=== PATIENT | male | born 1960 | race Caucasian/White ===

== ENCOUNTER 2021-06-12 21:26 | Inpatient (IN) | payer BC ==
[2021-06-12] MEDS ORDERED: Zithromax 500 MG/ 250 ML NaCl Premix 500 MG/250 ML IVPB IV STA (21:58)
[2021-06-12] MEDS ORDERED: solu-MEDROL 125 MG, Sterile H2O 10 ml 2 ML IV ONE ×2 (21:58)
[2021-06-12] MEDS ORDERED: DUONEB 0.5-3 MG/3 ml Neb IH ONE ×2 (21:58)
[2021-06-12] MEDS ORDERED: ROCEPHIN 2 Gm-D5w 50ML BAG** 2 G/50 ML IVPB IV STA (21:59)
[2021-06-12] MEDS ORDERED: Sterile H2O 10 ml IJ ONE (22:00)
[2021-06-12] MEDS ORDERED: solu-MEDROL ONE (22:00)
--- NOTE | 2021-06-12 22:03 | ERPHSYRPT ---
- History of Present Illness Time Seen by Provider: 06/12/21 21:30 Source: patient Exam Limitations: no limitations Patient Subjective Stated Complaint: "I can't breath." Triage Nursing Assessment: 60 y/o white male with significant PMH of COPD rep orted worsening dyspnea with orthopnea over the past week. he reported being seen at [facility] in [place] on April 2021 and received a Z-pack and medrol dose pack. He was seen again at [facility] in the beginning of May 2021 and received a z-pack at that time. He reported only having roughly 1 week of "normal" breathing per himself. He denied headache, dizziness, visual disturbances, chest pain, N/V/D, or swelling in the extremities. Pupils 4mm bilateral. Neck supple without JVD. Symmetrical chest expansion. Heart tones S1/S2 regular rhythm tachycardic without extra beats. Patient presented with 2 - 3 word dyspnea and tripod position. Lungs with expiratory wheezes throghout all lobes with slightly diminished sounds in the posterior bases. Abdomen non- distended, non-surgical, and without peritoneal signs or pulsatile masses. Peripheral pulses +3 bilateral. Room air saturation was 88%. The patient does not have supplemental oxygen at home. He was placed on 3 L/min via NC with p ositive response SpO2 - 97% Timing/Duration: week(s) (1 week) Activities at Onset: none Severity of Dyspnea-Max: moderate Severity of Dyspnea-Current: mild Possible Cause: unknown cause (Cold weather) Modifying Factors: Improves With: albuterol inhaler Associated Symptoms: cough, wheezing, No fever, No ankle swelling, No leg swelling Allergies/Adverse Reactions: aspirin Allergy (Verified 06/12/21 21:27) Home Medications: Albuterol 8 gm Mdi Hfa [Ventolin Hfa MDI] 2 puff IH DAILY PRN 06/12/21 [History] Hx Tetanus, Diphtheria Vaccination/Date Given: No Hx Influenza Vaccination/Date Given: No Travel Risk - International Travel Have you traveled outside of the country in past 3 weeks: No - Coronavirus Screening Are you exhibiting any of the following symptoms?: Yes Symptoms: Shortness of Breath Close contact with a COVID-19 positive Pt in past 14-21 Days: No - Vaccine Status Have you recieved a Covid-19 vaccination: No - Review of Systems Constitutional: No Symptoms, No Fever, No Chills Eyes: No Symptoms Ears, Nose, & Throat: No Symptoms Respiratory: No Symptoms, No Cough, No Dyspnea Cardiac: No Symptoms, No Chest Pain, No Edema, No Syncope Abdominal/Gastrointestinal: No Symptoms, No Abdominal Pain, No Nausea, No Vomiting, No Diarrhea Genitourinary Symptoms: No Symptoms, No Dysuria Musculoskeletal: No Symptoms, No Back Pain, No Neck Pain Skin: No Symptoms, No Rash Neurological: No Symptoms, No Dizziness, No Focal Weakness, No Sensory Changes Psychological: No Symptoms Endocrine: No Symptoms Hematologic/Lymphatic: No Symptoms Immunological/Allergic: No Symptoms All Other Systems: Reviewed and Negative - Past Medical History Pertinent Past Medical History: Yes Respiratory History: COPD - Past Surgical History Past Surgical History: No - Social History Smoking Status: Never smoker Exposure to second hand smoke: No Drug Use: none Patient Lives Alone: No - Nursing Vital Signs Nursing Vital Signs: Initial Vital Signs Temperature 98.2 F 06/12/21 21:26 Pulse Rate 110 H 06/12/21 21:26 Respiratory Rate 24 06/12/21 21:26 Blood Pressure 131/106 06/12/21 21:26 O2 Sat by Pulse Oximetry 88 L 06/12/21 21:26 Pain Scale Pain Intensity 0 - Physical Exam General Appearance: no apparent distress, alert Eye Exam: PERRL/EOMI Ears, Nose, Throat Exam: hearing grossly normal, normal ENT inspection, normal pharynx Neck Exam: normal inspection, supple, full range of motion, No non-tender Respiratory Exam: respiratory distress, accessory muscle use, rhonchi, wheezing, No stridor Cardiovascular/Chest Exam: normal heart sounds, regular rate/rhythm Abdominal/Gastrointestinal Exam: soft, No tenderness, No distention, No mass Extremity Exam: non-tender, normal range of motion, normal inspection, no calf tenderness, no pedal edema Peripheral Pulses Exam: dorsalis-pedis (R): 2+, dorsalis-pedis (L): 2+ Neurologic Exam: alert, oriented x 3, cooperative, systems lead II-XII nml as tested, nml cerebellar function, nml station & gait, sensation nml, No motor deficits Skin Exam: normal color, warm, No dry Lymphatic Exam: No adenopathy SpO2 Interpretation: normal SpO2: 88 - Course Nursing assessment & vital signs reviewed: Yes EKG Interpreted by Me: RATE (106), Sinus Tach, NORMAL AXIS, NORMAL INTERVALS - Radiology Exams Chest X-ray Interpretation: Interpreted by me (Hyperinflated lungs, Otherwise clear. Normal cardiac silhouette. Intact bony thorax.) Ordered Tests: Active Orders 24 hr Category Date Time Status Livestock Sales Representative STAT Care 06/12/21 21:54 Active EKG-ER Only STAT Care 06/12/21 21:53 Active IV Insertion STAT Care 06/12/21 21:53 Active Pulse Oximetry (ED) STAT Care 06/12/21 21:53 Active CHEST 1 VIEW (PORTABLE) Stat Exams 06/12/21 21:54 Taken BLOOD CULTURE Stat Lab 06/12/21 22:24 Received CBC W DIFF Stat Lab 06/12/21 22:22 Completed CMP Stat Lab 06/12/21 22:22 Completed NT PRO BNP Stat Lab 06/12/21 22:22 Completed TROPONIN Q3H Lab 06/12/21 22:22 Completed TROPONIN Q3H Lab 06/13/21 01:00 Ordered TROPONIN Q3H Lab 06/13/21 04:00 Ordered TROPONIN Q3H Lab 06/13/21 07:00 Ordered TROPONIN Q3H Lab 06/13/21 10:00 Ordered Respiratory Therapy Assessment DAILY RT 06/12/21 22:23 Active Transfer Order Routine Transfer 06/12/21 Ordered Medication Summary Discontinued Medications Generic Name Dose Route Start Last Admin Trade Name Freq PRN Reason Stop Dose Admin Albuterol/Ipratropium 3 ml 06/12/21 21:58 06/12/21 22:05 Ipratropium/Albuterol Sulfate 3 Ml Ampul.Neb IH 06/12/21 21:59 3 ml STAT ONE Administration Albuterol/Ipratropium Confirm 06/12/21 21:58 Ipratropium/Albuterol Sulfate 3 Ml Ampul.Neb Administered 06/12/21 21:59 Dose 3 ml IH .STK-MED ONE Methylprednisolone Sodium 0 mg 06/12/21 21:58 06/12/21 22:02 Succinate 125 mg/ Sterile IV 06/12/21 21:59 125 mg Water 2 ml STAT ONE Administration Azithromycin 500 mg in 250 mls @ 250 mls/hr 06/12/21 21:58 06/12/21 23:28 Zithromax 500 Mg/ 250 Ml Nacl Premix IV 06/12/21 22:57 Infused STAT STA Infusion Ceftriaxone Sodium/Dextrose 2 g in 50 mls @ 100 mls/hr 06/12/21 21:59 06/12/21 22:39 Rocephin 2 Gm-D5w 50ml Bag IV 06/12/21 22:28 Infused STAT STA Infusion Ceftriaxone Sodium/Dextrose Confirm 06/12/21 22:07 Rocephin 2 Gm-D5w 50ml Bag Administered 06/12/21 22:08 Dose 2 g in 50 mls @ ud IV .STK-MED ONE Azithromycin Confirm 06/12/21 22:17 Zithromax 500 Mg/ 250 Ml Nacl Premix Administered 06/12/21 22:18 Dose 500 mg in 250 mls @ ud IV .STK-MED ONE Methylprednisolone Sodium Succinate Confirm 06/12/21 22:00 Methylprednis Sod Succ 125 Mg/2 Ml Vial Administered 06/12/21 22:01 Dose 125 mg .ROUTE .STK-MED ONE Sterile Water Confirm 06/12/21 22:00 Water For Injection,Sterile 10 Ml Vial Administered 06/12/21 22:01 Dose 10 ml IJ .STK-MED ONE Lab/Rad Data: Laboratory Result Diagrams 06/12/21 22:22 06/12/21 22:22 Laboratory Results 06/12/21 06/12/21 06/12/21 Range/Units 22:25 22:22 22:22 WBC (4.0-10.5) K/mm3 RBC (4.1-5.6) M/mm3 Hgb (12.5-18.0) gm/dl Hct (42-50) % MCV (78-100) fl MCH (26-32) pg MCHC (32-36) g/dl RDW (11.5-14.0) % Plt Count (150-450) K/mm3 MPV (7.5-11.0) fl Gran % (36.0-66.0) % Eos # (Auto) (0-0.5) Absolute Lymphs (auto) (1.0-4.6) Absolute Monos (auto) (0.0-1.3) Lymphocytes % (24.0-44.0) % Monocytes % (0.0-12.0) % Eosinophils % (0.00-5.0) % Basophils % (0.0-0.4) % Absolute Granulocytes (1.4-6.9) Basophils # (0-0.4) Sodium 140 (137-145) mmol/L Potassium 4.3 (3.5-5.1) mmol/L Chloride 101 (98-107) mmol/L Carbon Dioxide 29 (22-30) mmol/L Anion Gap 14.9 (5-15) MEQ/L BUN 8 L (9-20) mg/dL Creatinine 0.77 (0.66-1.25) mg/dL Estimated GFR > 60.0 ML/MIN Glucose 106 (74-106) mg/dL Calcium 9.8 (8.4-10.2) mg/dL Total Bilirubin 0.60 (0.2-1.3) mg/dL AST 25 (17-59) U/L ALT 16 (0-50) U/L Alkaline Phosphatase 96 (38-126) U/L Troponin I < 0.012 (0.000-0.034) ng/mL NT-Pro-B Natriuret Pep 32.2 (0-900) pg/mL Serum Total Protein 7.8 (6.3-8.2) g/dL Albumin 4.7 (3.5-5.0) g/dL Influenza Type A Ag NEGATIVE (NEGATIVE) Influenza Type B Ag NEGATIVE (NEGATIVE) RSV (PCR) NEGATIVE (Negative) SARS-CoV-2 (PCR) NEGATIVE (NEGATIVE) 06/12/21 Range/Units 22:22 WBC 8.4 (4.0-10.5) K/mm3 RBC 4.71 (4.1-5.6) M/mm3 Hgb 15.4 (12.5-18.0) gm/dl Hct 44.7 (42-50) % MCV 94.9 (78-100) fl MCH 32.7 H (26-32) pg MCHC 34.5 (32-36) g/dl RDW 11.7 (11.5-14.0) % Plt Count 260 (150-450) K/mm3 MPV 10.3 (7.5-11.0) fl Gran % 49.1 (36.0-66.0) % Eos # (Auto) 1.22 H (0-0.5) Absolute Lymphs (auto) 2.27 (1.0-4.6) Absolute Monos (auto) 0.77 (0.0-1.3) Lymphocytes % 26.9 (24.0-44.0) % Monocytes % 9.1 (0.0-12.0) % Eosinophils % 14.5 H (0.00-5.0) % Basophils % 0.4 (0.0-0.4) % Absolute Granulocytes 4.15 (1.4-6.9) Basophils # 0.03 (0-0.4) Sodium (137-145) mmol/L Potassium (3.5-5.1) mmol/L Chloride (98-107) mmol/L Carbon Dioxide (22-30) mmol/L Anion Gap (5-15) MEQ/L BUN (9-20) mg/dL Creatinine (0.66-1.25) mg/dL Estimated GFR ML/MIN Glucose (74-106) mg/dL Calcium (8.4-10.2) mg/dL Total Bilirubin (0.2-1.3) mg/dL AST (17-59) U/L ALT (0-50) U/L Alkaline Phosphatase (38-126) U/L Troponin I (0.000-0.034) ng/mL NT-Pro-B Natriuret Pep (0-900) pg/mL Serum Total Protein (6.3-8.2) g/dL Albumin (3.5-5.0) g/dL Influenza Type A Ag (NEGATIVE) Influenza Type B Ag (NEGATIVE) RSV (PCR) (Negative) SARS-CoV-2 (PCR) (NEGATIVE) - Progress Progress: improved Air Movement: fair Progress Note: Patient states that his previous physician before current bout was Dr. Gaspar. Case discussed with Dr. Gaspar who accepts admission to observation. Patient reassessed. He is breathing easier at this point. Patient currently on 3 L nasal cannula. Saturation is 95%. Heart rate 99. Plan of care discussed with patient. He agrees to admission [facility] for further evaluation and treatment. Covid negative Portions of this note were created with voice recognition technology. There may be grammatical, spelling, punctuation or sound alike errors 06/12/21 23:41 Blood Culture(s) Obtained: Yes Antibiotics given: Yes Counseled pt/family regarding: lab results, diagnosis, rad results - Departure Departure Disposition: Observation Clinical Impression: COPD exacerbation, Hypoxia, Wheezing Condition: Stable Critical Care Time: No Referrals: MARIANA TADEO MD [Primary Care Provider] - Follow up/PCP as directed Instructions: Chronic Obstructive Pulmonary Disease
[2021-06-12] MEDS ORDERED: ROCEPHIN 2 Gm-D5w 50ML BAG** 2 G/50 ML IVPB IV ONE (22:07)
[2021-06-12] MEDS ORDERED: Zithromax 500 MG/ 250 ML NaCl Premix 500 MG/250 ML IVPB IV ONE (22:17)
[2021-06-12 22:27] LABS: Absolute Neutrophil Ct (ANC) 4.15 (1.4-6.9); Basophil (Absolute #) 0.03 (0-0.4); Eosinophil % 14.5 % (0.00-5.0); Eosinophil (Absolute #) 1.22 (0-0.5); Hematocrit 44.7 % (42-50); Hemoglobin 15.4 gm/dl (12.5-18.0); Lymphocyte (Absolute #) 2.27 (1.0-4.6); Lymphocytes % 26.9 % (24.0-44.0); Mean Cell Volume 94.9 fl (78-100); Mean Corpuscular Hemoglobin 32.7 pg (26-32); Mean Corpuscular Hgb Concent. 34.5 g/dl (32-36); Mean Platelet Volume 10.3 fl (7.5-11.0); Monocyte (Absolute #) 0.77 (0.0-1.3); Monocytes % 9.1 % (0.0-12.0); Neutrophil % 49.1 % (36.0-66.0); Platelet Count 260 K/mm3 (150-450); Red Blood Count 4.71 M/mm3 (4.1-5.6); Red Cell Distribution Width 11.7 % (11.5-14.0); White Blood Count 8.4 K/mm3 (4.0-10.5)
[2021-06-12 22:49] LABS: ALBUMIN 4.7 g/dL (3.5-5.0); ALKALINE PHOSPHATASE 96 U/L (38-126); ANION GAP 14.9 MEQ/L (5-15); BLOOD UREA NITROGEN 8 mg/dL (9-20); CHLORIDE 101 mmol/L (98-107); Calcium 9.8 mg/dL (8.4-10.2); Carbon Dioxide 29 mmol/L (22-30); Creatinine 1 0.77 mg/dL (0.66-1.25); EST GLOMERULAR FILTRATION RATE > 60.0 ML/MIN; Glucose 106 mg/dL (74-106); NT PRO BNP 32.2 pg/mL (0-900); Potassium 4.3 mmol/L (3.5-5.1); SGOT/AST 25 U/L (17-59); SGPT/ALT 16 U/L (0-50); SODIUM 140 mmol/L (137-145); Total Protein 7.8 g/dL (6.3-8.2)
[2021-06-12 23:05] LABS: INFLUENZA A NEGATIVE (NEGATIVE); INFLUENZA B NEGATIVE (NEGATIVE); RESPIRATORY SYNCTIAL VIRUS NEGATIVE (Negative); SARS-CoV-2 Xpert Express NEGATIVE (NEGATIVE)
[2021-06-12] MEDS ORDERED: ENOXAPARIN SODIUM SQ ONE (23:43)
[2021-06-13] MEDS ORDERED: ENOXAPARIN SODIUM SQ ONE (00:04)
[2021-06-13] MEDS: DUONEB 0.5-3 MG/3 ml Neb IH SCH ×6 (02:19→23:45)
[2021-06-13 05:01] LABS: Hematocrit 40.9 % (42-50); Hemoglobin 14.2 gm/dl (12.5-18.0); Mean Cell Volume 95.6 fl (78-100); Mean Corpuscular Hemoglobin 33.2 pg (26-32); Mean Corpuscular Hgb Concent. 34.7 g/dl (32-36); Mean Platelet Volume 10.3 fl (7.5-11.0); Platelet Count 238 K/mm3 (150-450); Red Blood Count 4.28 M/mm3 (4.1-5.6); Red Cell Distribution Width 11.7 % (11.5-14.0); White Blood Count 6.6 K/mm3 (4.0-10.5)
[2021-06-13 05:23] LABS: ALBUMIN 4.2 g/dL (3.5-5.0); ALKALINE PHOSPHATASE 89 U/L (38-126); ANION GAP 15.2 MEQ/L (5-15); BLOOD UREA NITROGEN 8 mg/dL (9-20); CHLORIDE 103 mmol/L (98-107); Calcium 9.4 mg/dL (8.4-10.2); Carbon Dioxide 25 mmol/L (22-30); Creatinine 1 0.68 mg/dL (0.66-1.25); EST GLOMERULAR FILTRATION RATE > 60.0 ML/MIN; Glucose 161 mg/dL (74-106); Potassium 4.2 mmol/L (3.5-5.1); SGOT/AST 22 U/L (17-59); SGPT/ALT 14 U/L (0-50); SODIUM 138 mmol/L (137-145); Total Protein 7.1 g/dL (6.3-8.2)
[2021-06-13] MEDS ORDERED: solu-MEDROL ONE ×3 (06:14→22:09)
[2021-06-13] MEDS ORDERED: Sterile H2O 10 ml IJ ONE (06:15)
[2021-06-13] MEDS: solu-MEDROL 60 MG, Sterile H2O 10 ml 2 ML IV SCH ×10 (06:20→23:32)
[2021-06-13] MEDS: Advair Hfa 115/21 Common canister IH SCH ×2 (06:49→18:35)
--- NOTE | 2021-06-13 08:55 | XRAY ---
Indication: Pneumonia. History of COPD. Comparison: None Portable apical lordotic chest hyperinflated and clear. A few incidental tiny calcified granulomas bilaterally. Heart and mediastinal structures within normal limits. 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 Impression: Nonacute hyperinflated chest with chronic features.
[2021-06-13] MEDS: Pepcid 20 MG VIAL IV SCH ×2 (09:10→21:24)
--- NOTE | 2021-06-13 12:35 | PCM.HP ---
History of Present Illness - Chief Complaint Chief Complaint: shortness of breath for 2-3 days History of Present Illness: is a 60 year old male.with significant PMH of COPD reported worsening dyspnea with orthopnea over the past week. he reported being seen at [facility] [place] in [place] on April 2021 and received a Z-pack and medrol dose pack. [place] [facility] [place] and received a z-pack at that time. He reported only having roughly 1 week of "normal" breathing per himself. He denied headache, dizziness, visual disturbances, chest pain, N/V/D, or swelling in the extremities. Pupils 4mm bilateral. Neck supple without JVD. Symmetrical chest expansion. Heart tones S1/S2 regular rhythm tachycardic without extra beats. Patient presented with 2 - 3 word dyspnea and tripod position. Lungs with expiratory wheezes throghout all lobes with slightly diminished sounds in the posterior bases. Abdomen non-distended, non-surgical, and without peritoneal signs or pulsatile masses. Peripheral pulses +3 bilateral. Room air saturation was 88%. The patient does not have supplemental oxygen at home. He was placed on 3 L/min via NC with positive response SpO2 - 97% - Review of Systems Constitutional: Lethargy, No Fever, No Chills Eyes: No Symptoms Ears, Nose, & Throat: No Symptoms Respiratory: Cough, Orthopnea, Short Of Breath, Wheezing Cardiac: No Chest Pain, No Edema, No Syncope Abdominal/Gastrointestinal: No Abdominal Pain, No Nausea, No Vomiting, No Diarrhea Genitourinary Symptoms: No Dysuria Musculoskeletal: No Back Pain, No Neck Pain Skin: No Rash Neurological: No Dizziness, No Focal Weakness, No Sensory Changes Psychological: No Symptoms Endocrine: No Symptoms Hematologic/Lymphatic: No Symptoms Immunological/Allergic: No Symptoms Medications & Allergies Home Medications: Home Medication List Albuterol 8 gm Mdi Hfa [Ventolin Hfa MDI] 2 puff IH Q4H PRN PRN 06/12/21 [History Confirmed 06/13/21] Albuterol 2.5 mg/3 ml Neb [Proventil 2.5 mg/3 ml Neb] 1 inh NEB Q6H PRN PRN 06/13/21 [History Confirmed 06/13/21] Fluticasone/Umeclidin/Vilanter [Trelegy Ellipta 100-62.5-25] 1 puff IH DAILY 06/13/21 [History Confirmed 06/13/21] Allergies/Adverse Reactions: Allergies Allergy/AdvReac Type Severity Reaction Status Date / Time aspirin Allergy Verified 06/13/21 00:34 - Past Medical History Past Medical History: Yes Neurological History: No Pertinent History ENT History: No Pertinent History Cardiac History: No Pertinent History Respiratory History: COPD Endocrine Medical History: No Pertinent History Musculoskelatal History: No Pertinent History GI Medical History: No Pertinent History History: No Pertinent History Pyscho-Social History: Anxiety Male Reproductive Disorders: No Pertinent History - Past Surgical History Past Surgical History: No Neuro Surgical History: No Pertinent History Cardiac History: No Pertinent History Respiratory Surgery: No Pertinent History GI Surgical History: No Pertinent History Genitourinary Surgical Hx: No Pertinent History Musculskeletal Surgical Hx: No Pertinent History Male Surgical History: No Pertinent History Other Surgical History: Hx of right sided chest tube after traumatic accident. - Social History Smoking Status: Never smoker Exposure to second hand smoke: No Alcohol: Rarely Drug Use: none - Physical Exam Vital Signs: Vital Signs - 24 hr Temp Pulse Resp BP Pulse Ox 06/13/21 12:00 97.8 F 120 H 16 138/83 92 L 06/13/21 10:44 105 H 19 95 06/13/21 08:00 98.1 F 105 H 19 157/67 94 L 06/13/21 06:52 69 16 92 L 06/13/21 04:00 97.9 F 93 H 20 138/83 96 06/13/21 02:19 89 19 92 L 06/13/21 00:46 96.8 F 90 19 144/80 97 06/13/21 00:03 88 129/87 96 06/12/21 23:45 88 L 06/12/21 23:18 98 H 22 125/93 96 06/12/21 22:26 103 H 24 125/93 97 06/12/21 22:05 93 H 24 96 06/12/21 21:53 97 06/12/21 21:26 98.2 F 110 H 26 H 131/106 88 L General Appearance: no apparent distress, moderate distress, alert Neurologic Exam: alert, oriented x 3, cooperative, normal mood/affect, nml cerebellar function, nml station & gait, sensation nml, No motor deficits Eye Exam: PERRL/EOMI, eyes nml inspection Ears, Nose, Throat Exam: normal ENT inspection, TMs normal, pharynx normal, moist mucous membranes Neck Exam: normal inspection, non-tender, supple, full range of motion Respiratory Exam: normal breath sounds, diminished breath sounds, wheezing, No respiratory distress Cardiovascular Exam: regular rate/rhythm, normal heart sounds, normal peripheral pulses Gastrointestinal/Abdomen Exam: soft, normal bowel sounds, No tenderness, No mass Back Exam: normal inspection, normal range of motion, No CVA tenderness, No vertebral tenderness Extremity Exam: normal inspection, normal range of motion, pelvis stable Skin Exam: normal color, warm, dry, No rash Lymphatic Exam: No adenopathy Results - Labs Lab/Micro Results: Lab Results-Last 24 Hours 06/12/21 06/12/21 06/12/21 Range/Units 22:22 22:22 22:22 WBC 8.4 (4.0-10.5) K/mm3 RBC 4.71 (4.1-5.6) M/mm3 Hgb 15.4 (12.5-18.0) gm/dl Hct 44.7 (42-50) % MCV 94.9 (78-100) fl MCH 32.7 H (26-32) pg MCHC 34.5 (32-36) g/dl RDW 11.7 (11.5-14.0) % Plt Count 260 (150-450) K/mm3 MPV 10.3 (7.5-11.0) fl Gran % 49.1 (36.0-66.0) % Eos # (Auto) 1.22 H (0-0.5) Absolute Lymphs (auto) 2.27 (1.0-4.6) Absolute Monos (auto) 0.77 (0.0-1.3) Lymphocytes % 26.9 (24.0-44.0) % Monocytes % 9.1 (0.0-12.0) % Eosinophils % 14.5 H (0.00-5.0) % Basophils % 0.4 (0.0-0.4) % Absolute Granulocytes 4.15 (1.4-6.9) Basophils # 0.03 (0-0.4) Sodium 140 (137-145) mmol/L Potassium 4.3 (3.5-5.1) mmol/L Chloride 101 (98-107) mmol/L Carbon Dioxide 29 (22-30) mmol/L Anion Gap 14.9 (5-15) MEQ/L BUN 8 L (9-20) mg/dL Creatinine 0.77 (0.66-1.25) mg/dL Estimated GFR > 60.0 ML/MIN Glucose 106 (74-106) mg/dL Calcium 9.8 (8.4-10.2) mg/dL Total Bilirubin 0.60 (0.2-1.3) mg/dL AST 25 (17-59) U/L ALT 16 (0-50) U/L Alkaline Phosphatase 96 (38-126) U/L Troponin I < 0.012 (0.000-0.034) ng/mL NT-Pro-B Natriuret Pep 32.2 (0-900) pg/mL Serum Total Protein 7.8 (6.3-8.2) g/dL Albumin 4.7 (3.5-5.0) g/dL Influenza Type A Ag (NEGATIVE) Influenza Type B Ag (NEGATIVE) RSV (PCR) (Negative) SARS-CoV-2 (PCR) (NEGATIVE) 06/12/21 06/13/21 06/13/21 Range/Units 22:25 01:28 04:57 WBC (4.0-10.5) K/mm3 RBC (4.1-5.6) M/mm3 Hgb (12.5-18.0) gm/dl Hct (42-50) % MCV (78-100) fl MCH (26-32) pg MCHC (32-36) g/dl RDW (11.5-14.0) % Plt Count (150-450) K/mm3 MPV (7.5-11.0) fl Gran % (36.0-66.0) % Eos # (Auto) (0-0.5) Absolute Lymphs (auto) (1.0-4.6) Absolute Monos (auto) (0.0-1.3) Lymphocytes % (24.0-44.0) % Monocytes % (0.0-12.0) % Eosinophils % (0.00-5.0) % Basophils % (0.0-0.4) % Absolute Granulocytes (1.4-6.9) Basophils # (0-0.4) Sodium (137-145) mmol/L Potassium (3.5-5.1) mmol/L Chloride (98-107) mmol/L Carbon Dioxide (22-30) mmol/L Anion Gap (5-15) MEQ/L BUN (9-20) mg/dL Creatinine (0.66-1.25) mg/dL Estimated GFR ML/MIN Glucose (74-106) mg/dL Calcium (8.4-10.2) mg/dL Total Bilirubin (0.2-1.3) mg/dL AST (17-59) U/L ALT (0-50) U/L Alkaline Phosphatase (38-126) U/L Troponin I < 0.012 < 0.012 (0.000-0.034) ng/mL NT-Pro-B Natriuret Pep (0-900) pg/mL Serum Total Protein (6.3-8.2) g/dL Albumin (3.5-5.0) g/dL Influenza Type A Ag NEGATIVE (NEGATIVE) Influenza Type B Ag NEGATIVE (NEGATIVE) RSV (PCR) NEGATIVE (Negative) SARS-CoV-2 (PCR) NEGATIVE (NEGATIVE) 06/13/21 06/13/21 Range/Units 04:57 04:57 WBC 6.6 (4.0-10.5) K/mm3 RBC 4.28 (4.1-5.6) M/mm3 Hgb 14.2 (12.5-18.0) gm/dl Hct 40.9 L (42-50) % MCV 95.6 (78-100) fl MCH 33.2 H (26-32) pg MCHC 34.7 (32-36) g/dl RDW 11.7 (11.5-14.0) % Plt Count 238 (150-450) K/mm3 MPV 10.3 (7.5-11.0) fl Gran % (36.0-66.0) % Eos # (Auto) (0-0.5) Absolute Lymphs (auto) (1.0-4.6) Absolute Monos (auto) (0.0-1.3) Lymphocytes % (24.0-44.0) % Monocytes % (0.0-12.0) % Eosinophils % (0.00-5.0) % Basophils % (0.0-0.4) % Absolute Granulocytes (1.4-6.9) Basophils # (0-0.4) Sodium 138 (137-145) mmol/L Potassium 4.2 (3.5-5.1) mmol/L Chloride 103 (98-107) mmol/L Carbon Dioxide 25 (22-30) mmol/L Anion Gap 15.2 H (5-15) MEQ/L BUN 8 L (9-20) mg/dL Creatinine 0.68 (0.66-1.25) mg/dL Estimated GFR > 60.0 ML/MIN Glucose 161 H (74-106) mg/dL Calcium 9.4 (8.4-10.2) mg/dL Total Bilirubin 0.50 (0.2-1.3) mg/dL AST 22 (17-59) U/L ALT 14 (0-50) U/L Alkaline Phosphatase 89 (38-126) U/L Troponin I (0.000-0.034) ng/mL NT-Pro-B Natriuret Pep (0-900) pg/mL Serum Total Protein 7.1 (6.3-8.2) g/dL Albumin 4.2 (3.5-5.0) g/dL Influenza Type A Ag (NEGATIVE) Influenza Type B Ag (NEGATIVE) RSV (PCR) (Negative) SARS-CoV-2 (PCR) (NEGATIVE) - Radiology Impressions Radiology Exams & Impressions: Radiology Procedures Category Date Time Status CHEST 1 VIEW (PORTABLE) Stat Exams 06/12/21 21:54 Completed RAD/CHEST 1 VIEW (PORTABLE) Indication: Pneumonia. History of COPD. Comparison: None Portable apical lordotic chest hyperinflated and clear. A few incidental tiny calcified granulomas bilaterally. Heart and mediastinal structures within normal limits. 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 Impression: Nonacute hyperinflated chest with chronic features. - Other Procedures and Tests Respiratory Therapy 06/12/21 22:23 Respiratory Therapy Assessment DAILY 06/13/21 03:38 Oxygen NASAL CANNULA 2 lpm 06/13/21 03:46 Flutter Therapy UD 06/13/21 10:25 RT Miscellaneous Order ROUTINE Assessment/Plan (1) COPD exacerbation Current Visit: Yes Status: Acute Assessment & Plan: Chief Complaint Diagnosis COPD exacerbation, Hypoxia Allergies Allergy/AdvReac Type Severity Reaction Status Date / Time aspirin Allergy Verified 06/13/21 00:34 Vital Signs (Last 24 hours) Temp Pulse Resp BP Pulse Ox 06/13/21 12:00 97.8 F 120 H 16 138/83 92 L 06/13/21 10:44 105 H 19 95 06/13/21 08:00 98.1 F 105 H 19 157/67 94 L 06/13/21 06:52 69 16 92 L 06/13/21 04:00 97.9 F 93 H 20 138/83 96 06/13/21 02:19 89 19 92 L 06/13/21 00:46 96.8 F 90 19 144/80 97 06/13/21 00:03 88 129/87 96 06/12/21 23:45 88 L 06/12/21 23:18 98 H 22 125/93 96 06/12/21 22:26 103 H 24 125/93 97 06/12/21 22:05 93 H 24 96 06/12/21 21:53 97 06/12/21 21:26 98.2 F 110 H 26 H 131/106 88 L Home Medications Medication Instructions Recorded Confirmed Last Taken Type Albuterol 8 gm Mdi Hfa 2 puff IH Q4H PRN PRN 06/12/21 06/13/21 06/12/21 21:30 History [Ventolin Hfa MDI] Albuterol 2.5 mg/3 ml Neb 1 inh NEB Q6H PRN PRN 06/13/21 06/13/21 06/12/21 21 :30 History [Proventil 2.5 mg/3 ml Neb] Fluticasone/Umeclidin/Vilanter 1 puff IH DAILY 06/13/21 06/13/21 06/12/21 History [Valdo Ellipta 100-62.5-25] Current Medications Generic Name Dose Route Start Last Admin Trade Name Freq PRN Reason Stop Dose Admin Albuterol/Ipratropium 3 ml 06/13/21 03:00 06/13/21 10:43 Ipratropium/Albuterol Sulfate 3 Ml Ampul.Neb IH 07/13/21 02:59 3 ml Q4HRT POLI Administration Methylprednisolone Sodium 0 mg 01/27/22 00:13 06/13/21 11:33 Succinate 60 mg/ Sterile Water IV 07/13/21 00:12 60 mg 2 ml Q6HT POLI Administration Famotidine 20 mg 06/13/21 10:00 06/13/21 09:10 Famotidine 20 Mg/1 Vial IV 07/13/21 09:59 20 mg Q12HT POLI Administration Ceftriaxone Sodium/Dextrose 1 g in 50 mls @ 100 mls/hr 06/13/21 22:00 Rocephin 1 Gm-D5w 50 Ml Bag IV 06/16/21 21:59 Q24H22 POLI Azithromycin 500 mg in 250 mls @ 250 mls/hr 06/13/21 22:00 Zithromax 500 Mg/ 250 Ml Nacl Premix IV 07/13/21 21:59 Q24H22 POLI Fluticasone/Salmeterol 2 puff 06/13/21 07:00 06/13/21 06:49 Fluticasone/Salmeterol 115/21 - 120 Puff Common Canister IH 07/13/21 06:59 2 puff BIDRT POLI Administration Discontinued Medications Generic Name Dose Route Start Last Admin Trade Name Freq PRN Reason Stop Dose Admin Albuterol/Ipratropium 3 ml 06/12/21 21:58 06/12/21 22:05 Ipratropium/Albuterol Sulfate 3 Ml Ampul.Neb IH 06/12/21 21:59 3 ml STAT ONE Administration Albuterol/Ipratropium Confirm 06/12/21 21:58 Ipratropium/Albuterol Sulfate 3 Ml Ampul.Neb Administered 06/12/21 21:59 Dose 3 ml IH .STK-MED ONE Methylprednisolone Sodium 0 mg 06/12/21 21:58 06/12/21 22:02 Succinate 125 mg/ Sterile IV 06/12/21 21:59 125 mg Water 2 ml STAT ONE Administration Enoxaparin Sodium 60 mg 06/12/21 23:43 06/13/21 00:06 Enoxaparin Sodium 60 Mg/0.6 Ml Syringe SQ 06/12/21 23:44 60 mg STAT ONE Administration Enoxaparin Sodium Confirm 06/13/21 00:04 Enoxaparin Sodium 80 Mg/0.8 Ml Syringe Administered 06/13/21 00:05 Dose 80 mg SQ .STK-MED ONE Azithromycin 500 mg in 250 mls @ 250 mls/hr 06/12/21 21:58 06/12/21 23:28 Zithromax 500 Mg/ 250 Ml Nacl Premix IV 06/12/21 22:57 Infused STAT STA Infusion Ceftriaxone Sodium/Dextrose 2 g in 50 mls @ 100 mls/hr 06/12/21 21:59 06/12/21 22:39 Rocephin 2 Gm-D5w 50ml Bag IV 06/12/21 22:28 Infused STAT STA Infusion Ceftriaxone Sodium/Dextrose Confirm 06/12/21 22:07 Rocephin 2 Gm-D5w 50ml Bag Administered 06/12/21 22:08 Dose 2 g in 50 mls @ ud IV .STK-MED ONE Azithromycin Confirm 06/12/21 22:17 Zithromax 500 Mg/ 250 Ml Nacl Premix Administered 06/12/21 22:18 Dose 500 mg in 250 mls @ ud IV .STK-MED ONE Methylprednisolone Sodium Succinate Confirm 06/12/21 22:00 Methylprednis Sod Succ 125 Mg/2 Ml Vial Administered 06/12/21 22:01 Dose 125 mg .ROUTE .STK-MED ONE Methylprednisolone Sodium Succinate Confirm 06/13/21 06:14 Methylprednis Sod Succ 125 Mg/2 Ml Vial Administered 06/13/21 06:15 Dose 125 mg .ROUTE .STK-MED ONE Sterile Water Confirm 06/12/21 22:00 Water For Injection,Sterile 10 Ml Vial Administered 06/12/21 22:01 Dose 10 ml IJ .STK-MED ONE Sterile Water Confirm 06/13/21 06:15 Water For Injection,Sterile 10 Ml Vial Administered 06/13/21 06:16 Dose 10 ml IJ .STK-MED ONE Intake & Output (Last 24 hours) 06/11/21 06/12/21 06/13/21 06/14/21 11:59 11:59 11:59 11:59 Intake Total 380 Balance 380 Weight 66 kg Microbiology Results (Last 24 hours) 06/12/21 22:24 Blood Blood Culture Gram Stain - Pending 06/12/21 22:24 Blood Blood Culture - Pending 06/12/21 22:22 Blood Blood Culture Gram Stain - Pending 06/12/21 22:22 Blood Blood Culture - Pending Laboratory Results (Last 24 hours) 06/13/21 06/13/21 06/13/21 04:57 04:57 04:57 WBC 6.6 RBC 4.28 Hgb 14.2 Hct 40.9 L MCV 95.6 MCH 33.2 H MCHC 34.7 RDW 11.7 Plt Count 238 MPV 10.3 Gran % Eos # (Auto) Absolute Lymphs (auto) Absolute Monos (auto) Lymphocytes % Monocytes % Eosinophils % Basophils % Absolute Granulocytes Basophils # Sodium 138 Potassium 4.2 Chloride 103 Carbon Dioxide 25 Anion Gap 15.2 H BUN 8 L Creatinine 0.68 Estimated GFR > 60.0 Glucose 161 H Calcium 9.4 Total Bilirubin 0.50 AST 22 ALT 14 Alkaline Phosphatase 89 Troponin I < 0.012 NT-Pro-B Natriuret Pep Serum Total Protein 7.1 Albumin 4.2 Influenza Type A Ag Influenza Type B Ag RSV (PCR) SARS-CoV-2 (PCR) 06/13/21 06/12/21 06/12/21 01:28 22:25 22:22 WBC RBC Hgb Hct MCV MCH MCHC RDW Plt Count MPV Gran % Eos # (Auto) Absolute Lymphs (auto) Absolute Monos (auto) Lymphocytes % Monocytes % Eosinophils % Basophils % Absolute Granulocytes Basophils # Sodium Potassium Chloride Carbon Dioxide Anion Gap BUN Creatinine Estimated GFR Glucose Calcium Total Bilirubin AST ALT Alkaline Phosphatase Troponin I < 0.012 < 0.012 NT-Pro-B Natriuret Pep Serum Total Protein Albumin Influenza Type A Ag NEGATIVE Influenza Type B Ag NEGATIVE RSV (PCR) NEGATIVE SARS-CoV-2 (PCR) NEGATIVE 06/12/21 06/12/21 22:22 22:22 WBC 8.4 RBC 4.71 Hgb 15.4 Hct 44.7 MCV 94.9 MCH 32.7 H MCHC 34.5 RDW 11.7 Plt Count 260 MPV 10.3 Gran % 49.1 Eos # (Auto) 1.22 H Absolute Lymphs (auto) 2.27 Absolute Monos (auto) 0.77 Lymphocytes % 26.9 Monocytes % 9.1 Eosinophils % 14.5 H Basophils % 0.4 Absolute Granulocytes 4.15 Basophils # 0.03 Sodium 140 Potassium 4.3 Chloride 101 Carbon Dioxide 29 Anion Gap 14.9 BUN 8 L Creatinine 0.77 Estimated GFR > 60.0 Glucose 106 Calcium 9.8 Total Bilirubin 0.60 AST 25 ALT 16 Alkaline Phosphatase 96 Troponin I NT-Pro-B Natriuret Pep 32.2 Serum Total Protein 7.8 Albumin 4.7 Influenza Type A Ag Influenza Type B Ag RSV (PCR) SARS-CoV-2 (PCR) Orders (Last 24 hours) Category Date Time Status Bedrest with BRP/BSC ROUTINE Activity 06/13/21 00:13 Active Drum Stenciler STAT Care 06/12/21 21:54 Completed Code Status Order ROUTINE Care 06/13/21 00:13 Active EKG-ER Only STAT Care 06/12/21 21:53 Completed IV Care Q6H Care 06/13/21 00:13 Active IV Insertion STAT Care 06/12/21 21:[address] in Observation ROUTINE Care 06/13/21 00:13 Active Pulse Oximetry (ED) STAT Care 06/12/21 21:53 Completed Prasanth Brush, Apply ROUTINE Care 06/13/21 00:13 Active Telemetry Q6H Care 06/13/21 00:13 Active Weight,Daily 0600 Care 06/13/21 00:13 Active Storeperson/Discharge Plan ROUTINE Cons 06/13/21 01:32 Active Heart-Healthy Diet Diet 06/13/21 Breakfast Active CHEST 1 VIEW (PORTABLE) Stat Exams 06/12/21 21:54 Completed BLOOD CULTURE Stat Lab 06/12/21 22:24 Received CBC AM.LAB Lab 06/13/21 04:57 Completed CBC W DIFF Stat Lab 06/12/21 22:22 Completed CMP Stat Lab 06/12/21 22:22 Completed CMP Stat Lab 06/13/21 04:57 Completed NT PRO BNP Stat Lab 06/12/21 22:22 Completed TROPONIN Q3H Lab 06/12/21 22:22 Completed TROPONIN Q3H Lab 06/13/21 01:28 Completed TROPONIN Q3H Lab 06/13/21 04:57 Completed Albuterol/Ipratropium 3ml Neb* [DUONEB 0.5-3 MG/3 ml Med 06/12/21 21:58 Discontinued Neb] 3 ml IH .STK-MED ONE Albuterol/Ipratropium 3ml Neb* [DUONEB 0.5-3 MG/3 ml Med 06/13/21 03:00 Active Neb] 3 ml IH Q4HRT Albuterol/Ipratropium 3ml Neb* [DUONEB 0.5-3 MG/3 ml Med 06/12/21 21:58 Discontinued Neb] 3 ml IH STAT ONE Azithromycin 500 mg/250 ml [Zithromax 500 MG/ 250 ML Med 06/13/21 22:00 Active NaCl Premix] 500 mg in 250 ml IV Q24H22 Azithromycin 500 mg/250 ml [Zithromax 500 MG/ 250 ML Med 06/12/21 21:58 Discontinued NaCl Premix] 500 mg in 250 ml IV STAT Azithromycin 500 mg/250 ml [Zithromax 500 MG/ 250 ML Med 06/12/21 22:17 Discontinued NaCl Premix] 500 mg in 250 ml IV UD Ceftriaxone 1 GM/50 ML PREMIX* [ROCEPHIN 1 Gm-D5w 50 ml Med 06/13/21 22:00 Active Bag] 1 g in 50 ml IV Q24H22 Ceftriaxone 2 GM/50 ML PREMIX* [ROCEPHIN 2 Gm-D5w 50ML Med 06/12/21 21:59 Discontinued BAG] 2 g in 50 ml IV STAT Ceftriaxone 2 GM/50 ML PREMIX* [ROCEPHIN 2 Gm-D5w 50ML Med 06/12/21 22:07 Disc ontinued BAG] 2 g in 50 ml IV UD Enoxaparin Sodium [Enoxaparin Sodium] Med 06/12/21 23:43 Discontinued 60 mg SQ STAT ONE Enoxaparin Sodium [Enoxaparin Sodium] Med 06/13/21 00:04 Discontinued 80 mg SQ .STK-MED ONE Famotidine 20 mg Vial [Pepcid 20 MG VIAL] Med 06/13/21 10:00 Active 20 mg IV Q12HT Fluticasone/Salmeterol 115/21 [Advair Hfa 115/21 Common Med 06/13/21 07:00 Active canister*] 2 puff IH BIDRT Methylprednis Sod Succ 125 mg* [solu-MEDROL] Med 06/12/21 22:00 Discontinued 125 mg .ROUTE .STK-MED ONE Methylprednis Sod Succ 125 mg* [solu-MEDROL] Med 06/13/21 06:14 Discontinued 125 mg .ROUTE .STK-MED ONE Methylprednis Sod Succ 125 mg* [solu-MEDROL] 125 mg Med 06/12/21 21:58 Discontinued Water For Injection,Sterile [Sterile H2O 10 ml] 2 ml IV STAT Methylprednis Sod Succ 125 mg* [solu-MEDROL] 60 mg Med 06/13/21 00:13 Active Water For Injection,Sterile [Sterile H2O 10 ml] 2 ml IV Q6HT Water For Injection,Sterile [Sterile H2O 10 ml] Med 06/12/21 22:00 Discontinued 10 ml IJ .STK-MED ONE Water For Injection,Sterile [Sterile H2O 10 ml] Med 06/13/21 06:15 Discontinue d 10 ml IJ .STK-MED ONE Flutter Therapy UD RT 06/13/21 03:46 Active Oxygen NASAL CANNULA 2 lpm RT 06/13/21 03:38 Active Pulse Oximetry .continuos RT 06/13/21 03:39 Active RT Miscellaneous Order ROUTINE RT 06/13/21 10:25 Active Respiratory Therapy Assessment DAILY RT 06/12/21 22:23 Active Code(s): J44.1 - CHRONIC OBSTRUCTIVE PULMONARY DISEASE W (ACUTE) EXACERBATION (2) Hypoxia Current Visit: Yes Status: Acute Code(s): R09.02 - HYPOXEMIA (3) Wheezing Current Visit: Yes Status: Acute Code(s): R06.2 - WHEEZING
[2021-06-13] MEDS: ROCEPHIN 1 Gm-D5w 50 ml Bag** 1 G/50 ML IVPB IV SCH (21:22)
[2021-06-13] MEDS: Zithromax 500 MG/ 250 ML NaCl Premix 500 MG/250 ML IVPB IV SCH (21:40)
[2021-06-14] MEDS: DUONEB 0.5-3 MG/3 ml Neb IH SCH ×6 (03:25→23:40)
[2021-06-14] MEDS ORDERED: solu-MEDROL ONE ×2 (05:53→19:52)
[2021-06-14] MEDS: solu-MEDROL 60 MG, Sterile H2O 10 ml 2 ML IV SCH ×6 (05:56→21:30)
[2021-06-14] MEDS: Advair Hfa 115/21 Common canister IH SCH ×2 (07:24→19:07)
[2021-06-14] MEDS: Pepcid 20 MG VIAL IV SCH ×2 (08:51→21:30)
--- NOTE | 2021-06-14 11:33 | PCM.NOTE ---
Date and Time: 06/14/21 1132 Subjective Assessment: doing ok - Review of Systems Constitutional: No Fever, No Chills Eyes: No Symptoms Ears, Nose, & Throat: No Symptoms Respiratory: Cough, Orthopnea, Short Of Breath, Wheezing Cardiac: No Symptoms, No Chest Pain, No Edema, No Syncope Abdominal/Gastrointestinal: No Abdominal Pain, No Nausea, No Vomiting, No Diarrhea Genitourinary Symptoms: No Dysuria Musculoskeletal: No Back Pain, No Neck Pain Skin: No Rash Neurological: No Dizziness, No Focal Weakness, No Sensory Changes Psychological: No Symptoms Endocrine: No Symptoms Hematologic/Lymphatic: No Symptoms Immunological/Allergic: No Symptoms Objective Exam General Appearance: no apparent distress, alert Neurologic Exam: alert, oriented x 3, cooperative, normal mood/affect, nml cerebellar function, sensation nml, disoriented, No motor deficits Skin Exam: normal color, warm, dry Eye Exam: PERRL, EOMI, eyes nml inspection Ears, Nose, Throat Exam: normal ENT inspection, pharynx normal, moist mucous membranes Neck Exam: normal inspection, non-tender, supple, full range of motion Respiratory Exam: normal breath sounds, lungs clear, No respiratory distress Cardiovascular Exam: regular rate/rhythm, normal heart sounds Gastrointestinal/Abdomen Exam: soft, No tenderness, No mass Extremity Exam: normal inspection, normal range of motion Back Exam: normal inspection, normal range of motion, No CVA tenderness, No vertebral tenderness Male Genitalia Exam: deferred Rectal Exam: deferred OBJECTIVE DATA Vital Signs: Vital Signs - 24 hr Temp Pulse Resp BP Pulse Ox 06/14/21 11:13 80 18 92 L 06/14/21 07:58 76 14 88 L 06/14/21 07:50 97.6 F 76 14 134/60 93 L 06/14/21 04:00 97.3 F 88 20 131/73 94 L 06/14/21 03:27 88 20 94 L 06/13/21 23:54 98.7 F 95 H 17 111/66 90 L 06/13/21 23:45 108 H 20 89 L 06/13/21 20:00 98.5 F 127 H 21 143/69 93 L 06/13/21 18:35 107 H 14 92 L 06/13/21 16:00 97.5 F 116 H 13 145/85 92 L 06/13/21 14:50 114 H 20 91 L 06/13/21 12:00 97.8 F 120 H 16 138/83 92 L Pain Assessment - Last Documented Pain Intensity 0 Intake and Output: Intake & Output 06/11/21 06/12/21 06/13/21 06/14/21 11:59 11:59 11:59 11:59 Intake Total 380 720 Balance 380 720 Weight 66 kg Radiology Exams: Radiology Procedures Category Date Time Status CHEST 1 VIEW (PORTABLE) Stat Exams 06/12/21 21:54 Completed Assessment/Plan (1) COPD exacerbation Current Visit: Yes Status: Acute Code(s): J44.1 - CHRONIC OBSTRUCTIVE PULMONARY DISEASE W (ACUTE) EXACERBATION (2) Hypoxia Current Visit: Yes Status: Acute Code(s): R09.02 - HYPOXEMIA (3) Wheezing Current Visit: Yes Status: Acute Code(s): R06.2 - WHEEZING
[2021-06-14] MEDS: Mucomyst 200 MG/ML IH SCH (19:06)
[2021-06-14] MEDS: ROCEPHIN 1 Gm-D5w 50 ml Bag** 1 G/50 ML IVPB IV SCH (21:30)
[2021-06-14] MEDS: Zithromax 500 MG/ 250 ML NaCl Premix 500 MG/250 ML IVPB IV SCH (21:30)
[2021-06-15] MEDS: DUONEB 0.5-3 MG/3 ml Neb IH SCH ×6 (03:43→23:42)
[2021-06-15] MEDS: Mucomyst 200 MG/ML IH SCH ×3 (06:58→19:35)
[2021-06-15] MEDS: Advair Hfa 115/21 Common canister IH SCH ×2 (06:58→19:35)
[2021-06-15] MEDS: solu-MEDROL 60 MG, Sterile H2O 10 ml 2 ML IV SCH ×4 (10:43→21:29)
[2021-06-15] MEDS: Pepcid 20 MG VIAL IV SCH ×2 (10:44→21:29)
--- NOTE | 2021-06-15 18:19 | PCM.NOTE ---
Date and Time: 06/15/211814 Subjective Assessment: Patient is up at bedside eating fruit plate. O2 1L/NC. States the mucomyst started last night has really helped to start breaking up the mucus. Feels is starting to improve. Objective Exam General Appearance: no apparent distress Neurologic Exam: alert, oriented x 3, cooperative, normal mood/affect Skin Exam: normal color, warm, dry Eye Exam: eyes nml inspection Ears, Nose, Throat Exam: normal ENT inspection Neck Exam: normal inspection Respiratory Exam: diminished breath sounds, other (harsh expiratiory sounds left mid and base) Cardiovascular Exam: regular rate/rhythm (no edema) Gastrointestinal/Abdomen Exam: soft (nontender) OBJECTIVE DATA Vital Signs: Vital Signs - 24 hr Temp Pulse Resp BP Pulse Ox 06/15/21 16:00 98.0 F 109 H 21 125/77 95 06/15/21 14:50 88 16 95 06/15/21 12:00 97.6 F 87 15 143/68 92 L 06/15/21 11:18 84 18 91 L 06/15/21 08:00 97.9 F 80 14 134/60 95 06/15/21 06:59 87 18 95 06/15/21 04:00 98.4 F 87 20 121/65 97 06/15/21 03:46 83 16 97 06/14/21 23:40 102 H 18 96 06/14/21 23:28 98.1 F 103 H 20 130/60 96 06/14/21 19:25 98.4 F 114 H 26 H 130/71 93 L 06/14/21 19:07 113 H 18 92 L Pain Assessment - Last Documented Pain Intensity 0 Intake and Output: Intake & Output 06/13/21 06/14/21 06/15/21 06/16/21 11:59 11:59 11:59 11:59 Intake Total 380 720 940 480 Balance 380 720 940 480 Weight 66 kg 66.7 kg Multi-Disciplinary Progress Notes: Multi-Disciplinary Progress Notes 06/15/21 07:17 Respiratory Note by Esther Man INCREASE MUCOMYST TO 2CC BID PT TOLERATED 1CC WITH NO COMPLICATIONS Initialized on 06/15/21 07:17 - END OF NOTE Assessment/Plan (1) COPD exacerbation Current Visit: Yes Status: Acute Assessment & Plan: slowly improving,continue present care Code(s): J44.1 - CHRONIC OBSTRUCTIVE PULMONARY DISEASE W (ACUTE) EXACERBATION
[2021-06-15] MEDS: ROCEPHIN 1 Gm-D5w 50 ml Bag** 1 G/50 ML IVPB IV SCH (21:29)
[2021-06-15] MEDS: Zithromax 500 MG/ 250 ML NaCl Premix 500 MG/250 ML IVPB IV SCH (22:11)
[2021-06-16] MEDS: DUONEB 0.5-3 MG/3 ml Neb IH SCH ×4 (03:46→15:46)
[2021-06-16 06:23] LABS: Hematocrit 39.8 % (42-50); Hemoglobin 13.3 gm/dl (12.5-18.0); Mean Cell Volume 98.5 fl (78-100); Mean Corpuscular Hemoglobin 32.9 pg (26-32); Mean Corpuscular Hgb Concent. 33.4 g/dl (32-36); Mean Platelet Volume 10.5 fl (7.5-11.0); Platelet Count 230 K/mm3 (150-450); Red Blood Count 4.04 M/mm3 (4.1-5.6); Red Cell Distribution Width 11.7 % (11.5-14.0); White Blood Count 7.7 K/mm3 (4.0-10.5)
[2021-06-16] MEDS: Mucomyst 200 MG/ML IH SCH (07:03)
[2021-06-16] MEDS: Advair Hfa 115/21 Common canister IH SCH (07:03)
[2021-06-16 07:13] LABS: ALBUMIN 3.8 g/dL (3.5-5.0); ALKALINE PHOSPHATASE 58 U/L (38-126); ANION GAP 12.9 MEQ/L (5-15); BLOOD UREA NITROGEN 14 mg/dL (9-20); CHLORIDE 101 mmol/L (98-107); Carbon Dioxide 29 mmol/L (22-30); Creatinine 1 0.67 mg/dL (0.66-1.25); EST GLOMERULAR FILTRATION RATE > 60.0 ML/MIN; Glucose 129 mg/dL (74-106); Potassium 4.2 mmol/L (3.5-5.1); SGOT/AST 21 U/L (17-59); SGPT/ALT 17 U/L (0-50); SODIUM 139 mmol/L (137-145); Total Protein 6.6 g/dL (6.3-8.2)
[2021-06-16] MEDS ORDERED: solu-MEDROL ONE (09:56)
[2021-06-16] MEDS: solu-MEDROL 60 MG, Sterile H2O 10 ml 2 ML IV SCH ×2 (10:22)
[2021-06-16] MEDS: Pepcid 20 MG VIAL IV SCH (10:22)
[2021-06-16 12:07] VITALS: O2SAT 92
[2021-06-16] MEDS ORDERED: Ativan 0.5 MG PO PRN (12:18)
[2021-06-16] MEDS ORDERED: Mucinex 600MG ER Tabs PO SCH (13:00)
--- NOTE | 2021-06-16 15:43 | PCM.DCORD ---
- Discharge Disposition: Home, Self-Care Condition: Stable Prescriptions: New Prednisone 10 mg [Deltasone 10 mg] 10 mg PO DAILY #20 tablet Albuterol/Ipratropium 3ml Neb* [DUONEB 0.5-3 MG/3 ml Neb] 3 ml IH Q8H PRN PRN #90 misc PRN Reason: Shortness Of Breath/Wheezing Guaifenesin 600 mg ER [Mucinex 600MG ER Tabs] 600 mg PO BID #20 tablet Cefuroxime Axetil 500 mg [Ceftin 500 mg] 0 mg PO BIDAC #10 tablet hydrOXYzine HCL [Hydroxyzine HCl] 10 mg PO BID PRN 10 Days #20 tablet PRN Reason: Anxiety/Agitation Continue Albuterol 8 gm Mdi Hfa [Ventolin Hfa MDI] 2 puff IH Q4H PRN PRN PRN Reason: Shortness Of Breath Albuterol 2.5 mg/3 ml Neb [Proventil 2.5 mg/3 ml Neb] 1 inh NEB Q6H PRN PRN PRN Reason: Shortness Of Breath Fluticasone/Umeclidin/Vilanter [Trelegy Ellipta 100-62.5-25] 1 puff IH DAILY Follow up with: JOSE REGAN [CONSULTING PHYSICIAN] - 07/04/21 9:30 am EMILY SHORT MD [ACTIVE STAFF] - 06/20/21 10:30 am ( )
--- NOTE | 2021-06-16 16:02 | PCM.DS ---
Discharge Summary Date of Admission: 06/14/21 12:00 Admitting Physician: EMILY SHORT Primary Care Provider: MARIANA TADEO Allergies Allergies aspirin Allergy (Verified 06/13/21 00:34) Hospital Summary - Hospital Course Hospital Course: Patient is a 60 yr old gentleman who presented to ER with cough and shortness of breath. CXR showed hyperinflation but no acute findings. Heart was not enlarged. - Vitals & Intake/Output Vital Signs: Vital Signs Temperature 98.1 F 06/16/21 12:00 Pulse Rate 84 06/16/21 15:47 Respiratory Rate 16 06/16/21 15:47 Blood Pressure 146/75 06/16/21 12:00 O2 Sat by Pulse Oximetry 92 L 06/16/21 15:47 Intake & Output: Intake & Output 06/14/21 06/15/21 06/16/21 06/17/21 11:59 11:59 11:59 11:59 Intake Total 793 087 5498 Balance 575 670 4667 Weight 66.7 kg 68.7 kg 68.7 kg - Lab Result Diagrams: 06/16/21 05:25 06/16/21 05:25 Lab Results-Last 24 Hrs: Lab Results-Last 24 Hours 06/16/21 06/16/21 Range/Units 05:25 05:25 WBC 7.7 (4.0-10.5) K/mm3 RBC 4.04 L (4.1-5.6) M/mm3 Hgb 13.3 (12.5-18.0) gm/dl Hct 39.8 L (42-50) % MCV 98.5 (78-100) fl MCH 32.9 H (26-32) pg MCHC 33.4 (32-36) g/dl RDW 11.7 (11.5-14.0) % Plt Count 230 (150-450) K/mm3 MPV 10.5 (7.5-11.0) fl Sodium 139 (137-145) mmol/L Potassium 4.2 (3.5-5.1) mmol/L Chloride 101 (98-107) mmol/L Carbon Dioxide 29 (22-30) mmol/L Anion Gap 12.9 (5-15) MEQ/L BUN 14 (9-20) mg/dL Creatinine 0.67 (0.66-1.25) mg/dL Estimated GFR > 60.0 ML/MIN Glucose 129 H (74-106) mg/dL Calcium 9.0 (8.4-10.2) mg/dL Total Bilirubin 0.40 (0.2-1.3) mg/dL AST 21 (17-59) U/L ALT 17 (0-50) U/L Alkaline Phosphatase 58 (38-126) U/L Serum Total Protein 6.6 (6.3-8.2) g/dL Albumin 3.8 (3.5-5.0) g/dL Micro Results-Entire Visit: Microbiology 06/12/21 22:24 Blood Culture - Preliminary Blood NO GROWTH TO DATE 06/12/21 22:22 Blood Culture - Preliminary Blood NO GROWTH TO DATE - Procedures and Test Procedures and Tests throughout Hospitalization: Therapy Orders & Screens 06/12/21 22:23 Respiratory Therapy Assessment DAILY Comment: 06/13/21 03:38 Oxygen NASAL CANNULA 2 lpm Comment: Diagnosis: COPD exacerbation, Hypoxia 06/13/21 03:46 Flutter Therapy UD Comment: Diagnosis: COPD exacerbation, Hypoxia 06/13/21 10:25 RT Miscellaneous Order ROUTINE Comment: Physician Instructions: Reason For Exam: WEAN/TITRATE OXYGEN Diagnosis: COPD exacerbation, Hypoxia Final Diagnosis/Problem List - Final Discharge Diagnosis/Problem (1) COPD exacerbation Current Visit: Yes Status: Acute Code(s): J44.1 - CHRONIC OBSTRUCTIVE PULMONARY DISEASE W (ACUTE) EXACERBATION - Discharge Disposition: Home, Self-Care Condition: Stable Prescriptions: New Prednisone 10 mg [Deltasone 10 mg] 10 mg PO DAILY #20 tablet Albuterol/Ipratropium 3ml Neb* [DUONEB 0.5-3 MG/3 ml Neb] 3 ml IH Q8H PRN PRN #90 misc PRN Reason: Shortness Of Breath/Wheezing Guaifenesin 600 mg ER [Mucinex 600MG ER Tabs] 600 mg PO BID #20 tablet Cefuroxime Axetil 500 mg [Ceftin 500 mg] 0 mg PO BIDAC #10 tablet hydrOXYzine HCL [Hydroxyzine HCl] 10 mg PO BID PRN 10 Days #20 tablet PRN Reason: Anxiety/Agitation Continue Albuterol 8 gm Mdi Hfa [Ventolin Hfa MDI] 2 puff IH Q4H PRN PRN PRN Reason: Shortness Of Breath Albuterol 2.5 mg/3 ml Neb [Proventil 2.5 mg/3 ml Neb] 1 inh NEB Q6H PRN PRN PRN Reason: Shortness Of Breath Fluticasone/Umeclidin/Vilanter [Trelegy Ellipta 100-62.5-25] 1 puff IH DAILY Follow up with: JOSE REGAN [CONSULTING PHYSICIAN] - 07/04/21 9:30 am EMILY SHORT MD [ACTIVE STAFF] - 06/20/21 10:30 am ( )
[2021-06-16 16:19] VITALS: BP 112/66; PULSE 79
== END 2021-06-16 17:15 | disposition home or self-care (01) | DRG 192 ==
LOC: ED 21:26 → MED SURG 06-13 00:08 → OBSVTOIN 06-14 12:00
PROVIDERS: ADMIT General Practice; ATTEND General Practice
DX: J44.1 Chronic obstructive pulmonary disease with (acute) exacerbation (principal); R09.02 Hypoxemia; R06.2 Wheezing; R00.0 Tachycardia, unspecified; Z79.899 Other long term (current) drug therapy; Z20.828 Contact with and (suspected) exposure to other viral communicable diseases
CPT/HCPCS: 0241U; 36000; 36415; 71045; 80053; 83880; 84484; 85025; 85027; 87040; 93005; 93041; 93268; 94640; 94667; 94668; 94760; 94762; 96360; 96372; 96374; 99285; J0456; J0696; J1650; J2930; A9270-GY; G0378

== ENCOUNTER 2024-06-15 23:25 | Emergency (ER) | payer BC ==
--- NOTE | 2024-06-15 23:46 | ERPHSYRPT ---
- History of Present Illness Time Seen by Provider: 06/15/24 23:46 Historian: patient, family Exam Limitations: no limitations Physician History: This is a 63-year-old white male patient who feels that there is something stuck in his esophagus. He has had food boluses stuck in the past. This afternoon patient ate pork. He is unable to handle his secretions. He is try drinking soda and liquids over the last several hours without any help or benefit in relieving the presumed food bolus that is present. Patient does have sharp midsternal deep pain where he feels this food bolus is. Of all the times he had a food bolus caught in his esophagus, he has never had to come to the emergency department. He has tried all his maneuvers to help relieve the food bolus but they have been unsuccessful. Quality: sharpness Abdominal Pain Onset Location: other (Midsternal) Pain Radiation: no radiation Severity of Pain-Max: moderate Severity of Pain-Current: moderate Modifying Factors: Improves With: vomiting (Patient is vomiting up his oral intake) Associated Symptoms: other (Unable to handle his secretions) Previous symptoms: same symptoms as today, no recent treatment Allergies/Adverse Reactions: aspirin Allergy (Verified 06/13/21 00:34) Home Medications: Albuterol 8 gm Mdi Hfa [Ventolin Hfa MDI] 2 puff IH Q4H PRN PRN 06/12/21 [History] Albuterol 2.5 mg/3 ml Neb [Proventil 2.5 mg/3 ml Neb] 1 inh NEB Q6H PRN PRN 06/13/21 [History] Fluticasone/Umeclidin/Vilanter [Trelegy Ellipta 100-62.5-25] 1 puff IH DAILY 06/13/21 [History] Hx Tetanus, Diphtheria Vaccination/Date Given: No Hx Influenza Vaccination/Date Given: No Travel Risk - International Travel Have you traveled outside of the country in past 3 weeks: No - Emerging Infectious Disease Are you exhibiting symptoms associated with any current EIDs: No - Review of Systems Constitutional: No Symptoms Eyes: No Symptoms Ears, Nose, & Throat: No Symptoms Respiratory: No Symptoms Cardiac: No Symptoms Abdominal/Gastrointestinal: Vomiting (Unable to pass the food bolus and he is vomiting) Genitourinary Symptoms: No Symptoms Musculoskeletal: No Symptoms Skin: No Symptoms Neurological: No Symptoms Psychological: No Symptoms Endocrine: No Symptoms Hematologic/Lymphatic: No Symptoms Immunological/Allergic: No Symptoms All Other Systems: Reviewed and Negative - Past Medical History Pertinent Past Medical History: Yes Neurological History: No Pertinent History ENT History: No Pertinent History Cardiac History: No Pertinent History Respiratory History: COPD Endocrine Medical History: No Pertinent History Musculoskeletal History: No Pertinent History GI Medical History: No Pertinent History History: No Pertinent History Psycho-Social History: Anxiety Male Reproductive Disorders: No Pertinent History - Past Surgical History Past Surgical History: No Neuro Surgical History: No Pertinent History Cardiac: No Pertinent History Respiratory: No Pertinent History Gastrointestinal: No Pertinent History Genitourinary: No Pertinent History Musculoskeletal: No Pertinent History Male Surgical History: No Pertinent History Other Surgical History: Hx of right sided chest tube after traumatic accident. - Social History Smoking Status: Never smoker Exposure to second hand smoke: No Drug Use: none Patient Lives Alone: No - Nursing Vital Signs Nursing Vital Signs: Initial Vital Signs Temperature 98.1 F 06/15/24 23:51 Pulse Rate 96 H 06/15/24 23:51 Respiratory Rate 16 06/15/24 23:51 Blood Pressure 141/87 06/15/24 23:51 O2 Sat by Pulse Oximetry 99 06/15/24 23:51 Pain Scale Pain Intensity 6 - Physical Exam General Appearance: no apparent distress, alert, anxiety, thin Eye Exam: PERRL/EOMI, eyes nml inspection Ears, Nose, Throat Exam: normal ENT inspection, moist mucous membranes Neck Exam: normal inspection, non-tender, supple, full range of motion Respiratory Exam: normal breath sounds, lungs clear, airway intact, No chest tenderness, No respiratory distress Cardiovascular Exam: regular rate/rhythm, normal heart sounds, normal peripheral pulses Gastrointestinal/Abdomen Exam: soft, normal bowel sounds, No tenderness Rectal Exam: not done Back Exam: normal inspection, normal range of motion, No CVA tenderness, No vertebral tenderness Extremity Exam: normal inspection, normal range of motion, pelvis stable Neurologic Exam: alert, oriented x 3, cooperative, alemite operator II-XII nml as tested, normal mood/affect, nml cerebellar function, nml station & gait, sensation nml Skin Exam: normal color, warm, dry Lymphatic Exam: No adenopathy SpO2 Interpretation: normal O2 Delivery: Room Air - Course Nursing assessment & vital signs reviewed: Yes Ordered Tests: Active Orders 24 hr Category Date Time Status EKG-ER Only STAT Care 06/16/24 00:23 Active IV Insertion STAT Care 06/16/24 00:05 Active BMP Stat Lab 06/16/24 00:26 Completed CBC W DIFF Stat Lab 06/16/24 00:26 Completed TROPONIN Q4H Lab 06/16/24 00:26 Completed TROPONIN Q4H Lab 06/16/24 04:30 Ordered TROPONIN Q4H Lab 06/16/24 08:30 Ordered Medication Summary Generic Name Dose Route Start Last Admin Trade Name Fretrevor PRN Reason Stop Dose Admin Sodium Chloride 500 mls @ 100 mls/hr 06/16/24 01:00 Sodium Chloride 0.9% 500 Ml IV 07/16/24 00:59 .Q5H POLI Discontinued Medications Generic Name Dose Route Start Last Admin Trade Name Blue PRN Reason Stop Dose Admin Glucagon 1 mg 06/16/24 00:06 06/16/24 00:29 Glucagon 1 Mg/Vial Vial IV 06/16/24 00:07 1 mg STAT ONE Administration Glucagon Confirm 06/16/24 00:25 Glucagon 1 Mg/Vial Vial Administered 06/16/24 00:26 Dose 1 mg .ROUTE .STK-MED ONE Lab/Rad Data: Laboratory Result Diagrams 06/16/24 00:26 06/16/24 00:26 Laboratory Results 06/16/24 06/16/24 06/16/24 Range/Units 00:26 00:26 00:26 WBC 10.2 H (4.23-9.07) x10^3/uL RBC 3.90 L (4.63-6.08) x10^6/uL Hgb 13.7 (13.7-17.5) g/dL Hct 38.5 L (40.1-51.0) % MCV 98.7 H (79.0-92.2) fL MCH 35.1 H (25.7-32.2) pg MCHC 35.6 (32.3-36.5) g/dL RDW 11.0 L (11.6-14.4) % Plt Count 235 (163-337) x10^3/uL MPV 10.1 (9.4-12.4) fL Gran % 71.4 H (34.0-67.9) % Immature Gran % (Auto) 0.6 H (0.001-0.429) % Nucleat RBC Rel Count 0.0 (0.00-0.2) % Eos # (Auto) 0.43 (0.04-0.54) x10^3/uL Immature Gran # (Auto) 0.06 H (0.001-0.031) x10^3u/L Absolute Lymphs (auto) 1.47 (1.32-3.57) x10^3/uL Absolute Monos (auto) 0.91 H (0.30-0.82) x10^3/uL Absolute Nucleated RBC 0.00 (0.00-0.012) x10^3u/L Lymphocytes % 14.4 L (21.8-53.1) % Monocytes % 8.9 (5.3-12.2) % Eosinophils % 4.2 (0.8-7.0) % Basophils % 0.5 (0.2-1.2) % Absolute Granulocytes 7.30 H (1.78-5.38) x10^3/uL Basophils # 0.05 (0.01-0.08) x10^3/uL Sodium 140 (135-145) mmol/L Potassium 3.9 (3.5-5.1) mmol/L Chloride 107 (98-107) mmol/L Carbon Dioxide 24 (22-30) mmol/L Anion Gap 13.4 (5-15) MEQ/L BUN 6 L (9-20) mg/dL Creatinine 0.82 (0.66-1.25) mg/dL Estimated GFR 98.1 ML/MIN Glucose 105 (74-106) mg/dL Calcium 9.5 (8.4-10.2) mg/dL Troponin I < 0.012 (0.000-0.033) ng/mL - Progress Progress: improved, re-examined Progress Note: 06/16/24 00:28 My medical decision making and the assignment of moderate complexity to this patient's medical issue today is based on review of the patient's past medical history, review the patient's medication list, reviewed patient drug allergy list, history present illness and physical findings on examination. The workup in this patient includes placement of intravenous line, infusion of 1 mg glucagon intravenously, CBC, CMP, troponin level, twelve-lead EKG. The plan is to contact general surgery after the workup is completed. Differential diagnosis includes but is not limited to impacted food bolus in the esophagus 06/16/24 01:[address] Butler, the general surgeon on-call at this time. I reviewed the patient chief complaint and workup results. Just at the time Dr. Stern returned the call, it was reported to me that the patient was tolerating ice chips. Will provide him with clear liquids to see if he can tolerate oral intake. If the patient can tolerate oral intake, we will discharge him to home. If he is still unable to handle his secretions or tolerate clear liquids then Dr. Butler will plan on taking him to the operating room for upper endoscopy this morning, 06/16/2024. 06/16/24 01:48 I interpreted the patient's laboratory data results. Based on the laboratory data results there are no acute, emergent medical issues. The patient has drank both water and soda without problems. He is swallowing well now. We will discharge him to home Counseled pt/family regarding: diagnosis, need for follow-up Medical Desision Making - Independent Historian Additional History obtained from: Spouse - Diagnostic Testing Diagnostic test were ordered, analyzed, and reviewed by me: Yes - Risk of complications Low Risk: Low risk of morbidity from additional dx testing or treatment - Departure Departure Disposition: Home Clinical Impression: Food impaction of esophagus Condition: Stable Critical Care Time: No Referrals: MARIANA TADEO MD [Primary Care Provider] - Follow up/PCP as directed Additional Instructions: Drink plenty of clear liquids before advancing your diet. 2 small pieces of meat and drink fluids with the meal. Call your primary care provider today, 06/16/2024, to make arranges for follow-up appointment for further evaluation and management and to be seen in the next 3 to 5 days to arrange outpatient upper endoscopy.
[2024-06-16 00:23] VITALS: TEMP 98.1
[2024-06-16] MEDS ORDERED: GlucaGen 1 MG ONE (00:25)
[2024-06-16] MEDS: GlucaGen 1 MG IV ONE (00:29)
[2024-06-16 00:38] LABS: BASOPHIL % 0.5 % (0.2-1.2); Basophil (Absolute #) 0.05 x10^3/uL (0.01-0.08); Eosinophil % 4.2 % (0.8-7.0); Eosinophil (Absolute #) 0.43 x10^3/uL (0.04-0.54); Hematocrit 38.5 % (40.1-51.0); Hemoglobin 13.7 g/dL (13.7-17.5); IMMATURE GRAN # 0.06 x10^3u/L (0.001-0.031); IMMATURE GRAN % 0.6 % (0.001-0.429); Lymphocyte (Absolute #) 1.47 x10^3/uL (1.32-3.57); Lymphocytes % 14.4 % (21.8-53.1); Mean Cell Volume 98.7 fL (79.0-92.2); Mean Corpuscular Hemoglobin 35.1 pg (25.7-32.2); Mean Corpuscular Hgb Concent. 35.6 g/dL (32.3-36.5); Mean Platelet Volume 10.1 fL (9.4-12.4); Monocyte (Absolute #) 0.91 x10^3/uL (0.30-0.82); Monocytes % 8.9 % (5.3-12.2); Neutrophil % 71.4 % (34.0-67.9); Platelet Count 235 x10^3/uL (163-337); White Blood Count 10.2 x10^3/uL (4.23-9.07)
[2024-06-16 00:46] LABS: ANION GAP 13.4 MEQ/L (5-15); Calcium 9.5 mg/dL (8.4-10.2); Creatinine 1 0.82 mg/dL (0.66-1.25); EST GLOMERULAR FILTRATION RATE 98.1 ML/MIN; Potassium 3.9 mmol/L (3.5-5.1)
[2024-06-16] MEDS ORDERED: Sodium Chloride 0.9% 500 ML 500 ML IV SCH (01:00)
[2024-06-16 01:40] VITALS: PULSE 90; RESP 20; O2SAT 98
[2024-06-16 02:18] VITALS: BP 128/89
== END 2024-06-16 02:18 | disposition home or self-care (01) ==
LOC: ED 23:25
DX: T18.128A Food in esophagus causing other injury, initial encounter (principal); R07.9 Chest pain, unspecified; Z79.899 Other long term (current) drug therapy
CPT/HCPCS: 36415; 80048; 84484; 85025; 96374; 99283; 99284; J1610